=== PATIENT | female | born 1945 | race Caucasian/White ===

== ENCOUNTER 2016-09-25 07:10 | Emergency (ER) | payer MEDICARE, BC ==
[~2016-09-25] VITALS: Ht 154.9 cm; Wt 89.5 kg
[~2016-09-25 07:10] MED LIST: ALEVE 220MG220 MG PO; ANTIVERT 25MG25 MG PO; ASPIRIN 32325 MG/TAB PO; CALCIUM + D 6001 TA1 PO; COLACE 100100 MG/CAP PO; COUMADIN 5MG5 MG/TAB PO; FLOMAX 0.40.4 MG/CAP PO; FLONASE NASAL S16 GM NS; HAIR VITAMINS E1 TAB PO; IRON FERROUS S325 MG PO; LEVAQUIN 750MG750 M1 PO; NORCO 325 MG-51 TAB PO; SYNTHROID0.05 MG/TA PO; TENORMIN 2525 MG/TAB PO; VENTOLIN0.09 MG IH; XARELTO15 MG PO; ZOCOR 20MG20 MG PO; ZOFRAN 4MG T4 MG/TAB PO; ZYRTEC5 MG PO
[2016-09-25 07:15] VITALS: TEMP 98.3
[2016-09-25 08:07] LABS: ADJUSTED CALCIUM 9.9 mg/dL (8.4-10.2); ALBUMIN 4.3 gm/dL (3.5-5.0); BILIRUBIN,TOTAL 0.9 mg/dL (0.0-1.0); C-REACTIVE PROTEIN 0.7 mg/dL (0.0-0.9); CALCIUM 10.1 mg/dL (8.4-10.2); CREATININE, serum 1.01 mg/dL (0.52-1.25); POTASSIUM 3.9 mmol/L (3.4-5.0); TOTAL PROTEIN 7.5 gm/dL (6.4-8.2)
[2016-09-25 08:31] LABS: BASO % 0.5 % (0.0-2.0); EOS % 0.5 % (0-4.0); GRAN # 6.9 (1.4-6.5); GRAN % 80.9 % (42.2-75.2); HEMATOCRIT 43.5 % (37.0-47.0); HEMOGLOBIN 14.8 g/dl (12.5-16.0); LYMPH # 0.9 (1.2-3.4); LYMPH % 10.2 % (20.0-51.0); MEAN CELL VOLUME 91 fl (80.0-100.0); MEAN CORPUSCULAR HEMOGLOBIN 31 pg (27.0-31.0); MEAN CORPUSCULAR HGB CONC 34 g/dl (33.0-37.0); MEAN PLATELET VOLUME 9.6 fl (7.4-10.4); MONO # 0.7 (0.1-0.6); MONO % 7.8 % (1.7-9.3); PLATELET COUNT 237 K/mm3 (130-400); RED BLOOD COUNT 4.79 M/mm3 (4.10-5.30); REDCELL DISTRIBUTION WIDTH-CV 11.6 % (11.5-14.5); WHITE BLOOD COUNT 8.5 K/mm3 (4.8-10.8)
[2016-09-25 09:18] LABS: PH 6 (5-8); SQUAMOUS EPITHELIAL 0-2 /hpf; URINE APPEARANCE Clear; URINE BACTERIA Rare /hpf; URINE BILIRUBIN Negative (NEGATIVE); URINE BLOOD 3+ (NEGATIVE); URINE COLOR Yellow; URINE GLUCOSE Negative (NEGATIVE); URINE KETONE Negative (NEGATIVE); URINE UROBILINOGEN Negative (NEGATIVE)
[2016-09-25] MEDS ORDERED: NORCO 325 MG-51 TAB PO (10:15)
[2016-09-25] MEDS ORDERED: FLOMAX 0.40.4 MG/CAP PO (10:15)
[2016-09-25 10:28] VITALS: BP 127/78; PULSE 72
== END 2016-09-25 10:28 | disposition home or self-care (01) ==
LOC: COL.ER 07:10
PROVIDERS: Emergency Medicine; Nurse Practitioner
DX: N13.2 Hydronephrosis with renal and ureteral calculous obstruction (principal); I10 Essential (primary) hypertension; Z87.442 Personal history of urinary calculi
CPT/HCPCS: J2405; J7030

== ENCOUNTER 2018-01-28 16:43 | Emergency (ER) | payer MEDICARE, BC ==
[~2018-01-28] VITALS: Ht 154.9 cm; Wt 93.1 kg
[2018-01-28 16:48] VITALS: TEMP 98.2
[2018-01-28 17:35] LABS: BASO % 0.5 % (0.0-2.0); EOS % 0.4 % (0-4.0); GRAN # 7.1 (1.4-6.5); GRAN % 84.5 % (42.2-75.2); HEMATOCRIT 41.7 % (37.0-47.0); HEMOGLOBIN 13.7 g/dl (12.5-16.0); LYMPH # 0.8 (1.2-3.4); LYMPH % 9.2 % (20.0-51.0); MEAN CELL VOLUME 92 fl (80.0-100.0); MEAN CORPUSCULAR HEMOGLOBIN 30 pg (27.0-31.0); MEAN CORPUSCULAR HGB CONC 33 g/dl (33.0-37.0); MEAN PLATELET VOLUME 8.9 fl (7.4-10.4); MONO # 0.4 (0.1-0.6); MONO % 4.9 % (1.7-9.3); PLATELET COUNT 245 K/mm3 (130-400); RED BLOOD COUNT 4.53 M/mm3 (4.10-5.30); REDCELL DISTRIBUTION WIDTH-CV 12.7 % (11.5-14.5)
[2018-01-28 17:45] LABS: INR 1.2 (0.8-3.0); PROTHROMBIN TIME 13.3 SECONDS (9.7-12.8)
[2018-01-28 17:49] LABS: ALBUMIN 4.1 gm/dL (3.5-5.0); BILIRUBIN,TOTAL 0.5 mg/dL (0.0-1.0); CALCIUM 9.8 mg/dL (8.4-10.2); CREATININE, serum 0.87 mg/dL (0.52-1.25); POTASSIUM 3.9 mmol/L (3.4-5.0); TOTAL PROTEIN 7.5 gm/dL (6.4-8.2)
[2018-01-28 18:17] VITALS: BP 137/84; PULSE 78
== END 2018-01-28 18:15 | disposition home or self-care (01) ==
LOC: COL.ER 16:43
PROVIDERS: Emergency Medicine
DX: S00.03XA Contusion of scalp, initial encounter (principal); E03.9 Hypothyroidism, unspecified; I10 Essential (primary) hypertension; E78.5 Hyperlipidemia, unspecified; Z79.82 Long term (current) use of aspirin; Z79.01 Long term (current) use of anticoagulants; Z23 Encounter for immunization; W18.39XA Other fall on same level, initial encounter

== ENCOUNTER → 2018-04-10 | Outpatient (CLI) | payer MEDICARE, BC | LOC: MC.RAD 14:40 | DX: Z12.31 Encounter for screening mammogram for malignant neoplasm of breast (principal) ==

== ENCOUNTER 2018-11-25 11:19 | Inpatient (IN) | payer MEDICARE, BC ==
[~2018-11-25] VITALS: Ht 154.9 cm; Wt 93.5 kg
[2018-12-29] VITALS (11 sets, daily range): BP systolic 116–155; BP diastolic 49–93; PULSE 55–74; TEMP 97.4–98.2
[2018-12-29] MEDS ORDERED: PLAVIX 75MG TAB75 MG PO (05:25)
[2018-12-29] MEDS ORDERED: COUMADIN 77.5 MG/TAB PO (07:58)
--- NOTE | 2018-12-29 11:10 | NUR ---
PATIENT BACK IN ROOM 328 POST OP LTH. ORIENTED BUT DROWSY. VSS. DENIES PAIN. PATIENT IS UNABLE TO MOVE BLE. LTH DRESSING IS CD&I WITH FOAM TAPE AND ICE PACK INPLACE. TEDS & SCD'S TO BLE. POSITIVE PEDAL PULSES TO BLE. CALVO TO DEPENDENT DRAINAGE WITH SMALL AMOUNTS OF CLEAR YELLOW URINE NOTED. IV FLUIDS INFUSING VIA PUMP INTO LEFT HAND IV. HEAD TO TOE WNL. NO OTHER NEEDS. LIQUIDS AT BEDSIDE. FAMILY AT BEDSIDE. CALL LIGHT IN REACH.
--- NOTE | 2018-12-29 11:18 | NUR ---
First visit from the real estate site analyst. Sport Psychologist spoke with family and explained services. No needs at this time.
--- NOTE | 2018-12-29 14:20 | NUR ---
PATIENT C/O PAIN IN LEFT HIP RATED AT 6/10. GAVE PRN NORCO, TWO TABS AND PRN ZOFRAN. PATIENT REFUSES TO EAT AND REQUESTED NAUSEA MEDS WITH PAIN PILL. VSS. PATIENT NOW RESTING COMFORTABLY WITH FAMILY AT BEDSIDE. NO OTHER NEEDS.
--- NOTE | 2018-12-29 16:17 | NUR ---
SW met with patient and family about discharge planning. Patient lives at home alone in [place]. Patient's PCP is Dr Trevino and she obtains prescriptions from [facility]. Patient uses a walker for ambulation but no other DME is reported and patient does not have any home health services. Patient does have a DPOA and a copy is on the chart. SW inquired if patient has a plan for PT after discharge. Patient and family do not have a plan but they are interested in options. SW explain outpatient PT vs Home Health vs SNF. Family report that SNF would likely be the best option for patient but would like to see what PT/OT recommend. SW will follow up with patient and family after PT and OT make recommendations.
--- NOTE | 2018-12-29 21:11 | NUR ---
Patient resting well in bed. Alert and oriented. Patient denies any pain, but wants pain medication before going for a walk. PRN medication given. Patient states she does not take Warfarin anymore and takes Plavix now. Warfarin held and will update physician in the morning.
[2018-12-30 00:28] VITALS: BP 99/45; PULSE 62; TEMP 98
[2018-12-30 04:11] VITALS: BP 116/45; PULSE 59; TEMP 98.1
--- NOTE | 2018-12-30 04:52 | NUR ---
Patient has rested well throughout the night. Minimal pain noted and is well controlled. Repositioning completed. Denies any further needs.
[2018-12-30 07:22] LABS: HEMOGLOBIN 11.2 g/dl (12.5-16.0)
[2018-12-30 07:27] LABS: HEMATOCRIT 34.3 % (37.0-47.0)
[2018-12-30 07:29] LABS: INR 1.3 (0.8-3.0); PROTHROMBIN TIME 14.4 SECONDS (9.7-12.8)
--- NOTE | 2018-12-30 07:41 | NUR ---
REPORT FROM INDIANA MARK.
[2018-12-30 07:48] VITALS: BP 114/49; PULSE 62; TEMP 98.6
--- NOTE | 2018-12-30 08:57 | NUR ---
PT SITTING UP IN BED VISITING WITH FAMILY AND FREINDS. DRESSING TO LEFT HIP CDI WITH BULKY DRESSING INPLACE.
--- NOTE | 2018-12-30 09:50 | NUR ---
pt struggled with physical therapy this am.
[2018-12-30 11:53] VITALS: BP 114/50; PULSE 63; TEMP 98.3
--- NOTE | 2018-12-30 13:39 | NUR ---
DRESSING CHANGE COMPLETE, CALVO CATHETER DISCONTINUED TIP INTACT PT TOLERATED WELL. INCISION WELL APPROXIMATED ROBBY INTACT. AQUACEL PLACED OVER INCISION.
--- NOTE | 2018-12-30 14:12 | NUR ---
SW met with patient about discharge plan. It has been recommended for patient to go to a SNF after discharge. SW provided the medicare.gov resource list for nursing facilities near [place]. Patient chose 1. [facility] and 2. [place] and signed choice form. SW faxed referral to both facilities.
[2018-12-30 15:52] VITALS: BP 110/50; PULSE 71; TEMP 98.6
--- NOTE | 2018-12-30 16:00 | NUR ---
Patient was accepted to [facility] for post acute rehab.
--- NOTE | 2018-12-30 18:53 | NUR ---
report to enrique MARK.
[2018-12-30 20:03] VITALS: BP 112/60; PULSE 75; TEMP 99.4
--- NOTE | 2018-12-30 20:21 | NUR ---
Patient resting in bed working on a word search. States pain 4/10 to left hip. Dressing CDI. Pulses present to bilateral lower extremities. No edema noted. Ice to left hip. PRN Pain medication given along with evening medications. SCDs and ALINA hose on. Denies further needs.
[2018-12-31] VITALS (8 sets, daily range): BP systolic 114–146; BP diastolic 42–72; PULSE 51–82; TEMP 98.4–99.7
--- NOTE | 2018-12-31 04:18 | NUR ---
Patient rested well throughout the night. Stated PRN pain medication brought pain to a 0. Wants SCDs off for now. Patient up to the restroom with SBA from staff. Steady gait. Utilizes walker well and reminds herself safety techniques.
[2018-12-31 06:00] LABS: HEMATOCRIT 31.1 % (37.0-47.0)
[2018-12-31 06:08] LABS: INR 1.4 (0.8-3.0); PROTHROMBIN TIME 15.6 SECONDS (9.7-12.8)
--- NOTE | 2018-12-31 07:53 | NUR ---
REPORT FROM JOANN MARK.
--- NOTE | 2018-12-31 10:46 | NUR ---
PT OUT TO [facility] WITH THERAPY THIS AM. PAIN WELL CONTROLLED WITH CURRENT PO MEDS.
--- NOTE | 2018-12-31 16:52 | NUR ---
INDIANA faxed updates to Remy.
--- NOTE | 2018-12-31 18:53 | NUR ---
REPORT TO JOSE MARK.
--- NOTE | 2018-12-31 21:21 | NUR ---
Resting in bed. Previous up ambulating. Assessment complete. Lungs clear. Heart sounds normal. Bowels active x4. Pulses strong throughout. No edema noted. INT to left hand without complications. Left hip dressing CDI. Denies pain. Denies needs at this time. Call light in reach.
--- NOTE | 2018-12-31 22:39 | NUR ---
Rating pain in left hip 03/11. Provided with CHANTEL quintero.
--- NOTE | 2019-01-01 02:20 | NUR ---
Resting in bed asleep. Call light in reach.
--- NOTE | 2019-01-01 03:52 | NUR ---
Resting in bed. Denies needs. Call light in reach.
[2019-01-01 04:23] VITALS: BP 116/42; PULSE 64; TEMP 98.6
--- NOTE | 2019-01-01 06:10 | NUR ---
Patient had uneventful night. Required pain control once throughout night. Ambulated from bed to restroom to sink and to chair. Resting in chair this AM. Provided with 2 cups of hot water as ordered. Denies needs at this time. Call light in reach.
[2019-01-01] MEDS ORDERED: NORCO 325 MG-7.1 TAB PO (06:41)
[2019-01-01] MEDS ORDERED: ROXICODONE 55 MG/TAB PO (06:42)
--- NOTE | 2019-01-01 06:54 | NUR ---
Report given to JAS Lowe
[2019-01-01 07:08] LABS: INR 1.3 (0.8-3.0); PROTHROMBIN TIME 14.4 SECONDS (9.7-12.8)
[2019-01-01 07:46] VITALS: BP 100/47; PULSE 86; TEMP 98.8
--- NOTE | 2019-01-01 09:30 | NUR ---
INDIANA met with patient to discuss disharge. Patient will discharge today to [facility] for custodial, PT and OT. INDIANA presented IM to patient. She signed but did not request a copy. INDIANA faxed discharge orders and arranged transportation for 10:30am.
[2019-01-01 09:32] VITALS: BP 100/47; PULSE 86; TEMP 98.8
[2019-01-01 09:44] VITALS: BP 100/47; PULSE 86; TEMP 98.8
--- NOTE | 2019-01-01 10:40 | NUR ---
PATIENT DISCHARGING VIA WHEELCHAIR WITH [facility]. GAVE INFO PACKET TO CARAMEL CUTTER HELPER. DC'D IV, COVERED SITE WITH CRISTINA & RG. SENT PERSONAL BELONGINGS. ATTEMPTED TO CALL REPORT X2. LEFT PHONE NUMBERN FOR NURSE TO CALL BACK.
== END 2019-01-01 10:40 | DRG 470 ==
LOC: JCC 12-29 05:02
PROVIDERS: ADMIT Orthopaedic Surgery
PROC: 0SRB0JA Replacement of Left Hip Joint with Synthetic Substitute, Uncemented, Open Approach (ICD-10-PCS; principal; 2018-12-29 07:30)
DX: M16.12 Unilateral primary osteoarthritis, left hip (principal); G11.9 Hereditary ataxia, unspecified; I10 Essential (primary) hypertension; E78.5 Hyperlipidemia, unspecified; Z79.01 Long term (current) use of anticoagulants; Z86.711 Personal history of pulmonary embolism; G60.9 Hereditary and idiopathic neuropathy, unspecified
CPT/HCPCS: A4314; A9284; C1713; C1776; J0360; J0690; J2250; J2274; J2405; J2704; J3010; J7042; J7120

== ENCOUNTER → 2018-12-24 | Outpatient (CLI) | payer MEDICARE, BC | LOC: COL.LAB 10:40 | DX: Z01.812 Encounter for preprocedural laboratory examination (principal) ==

== ENCOUNTER 2018-12-25 13:45 | Outpatient (RCR) | payer MEDICARE, BC | END 2018-12-26 11:59 | disposition home or self-care (01) | LOC: WSPT 13:45 | DX: G60.9 Hereditary and idiopathic neuropathy, unspecified (principal); G25.81 Restless legs syndrome | CPT/HCPCS: G8978-GP; G8979-GP ==

== ENCOUNTER → 2020-04-08 | Outpatient (CLI) | payer MEDICARE, BC ==
[~2020-04-08] MED LIST changes: +COUMADIN 77.5 MG/TAB PO; +NORCO 325 MG-7.1 TAB PO; +PLAVIX 75MG TAB75 MG PO; +ROXICODONE 55 MG/TAB PO
[2020-04-08 08:54] LABS: ALANINE AMINOTRANSFERASE 17 U/L (4-34); ALKALINE PHOSPHATASE 116 U/L (50-136); ANION GAP 5 mmol/L (7-16); AST,SGOT 29 U/L (15-37); BILIRUBIN,TOTAL 0.4 mg/dL (0.0-1.0); BLOOD UREA NITROGEN 16 mg/dL (7-17); CALCIUM 9.5 mg/dL (8.4-10.2); CARBON DIOXIDE 29 mmol/L (22-30); CHLORIDE 106 mmol/L (98-107); GLUCOSE 98 mg/dL (74-106); HEMATOCRIT 40.9 % (37.0-47.0); HEMOGLOBIN 13.1 g/dl (12.5-16.0); MEAN CELL VOLUME 92 fl (80.0-100.0); MEAN CORPUSCULAR HEMOGLOBIN 29 pg (27.0-31.0); MEAN CORPUSCULAR HGB CONC 32 g/dl (33.0-37.0); MEAN PLATELET VOLUME 9.5 fl (7.4-10.4); PLATELET COUNT 239 K/mm3 (130-400); RED BLOOD COUNT 4.47 M/mm3 (4.10-5.30); REDCELL DISTRIBUTION WIDTH-CV 12.9 % (11.5-14.5); SODIUM 140 mmol/L (137-145); TOTAL PROTEIN 7.1 gm/dL (6.4-8.2)
[2020-04-08 09:08] LABS: C-REACTIVE PROTEIN < 0.5 mg/dL (0.0-0.9)
[2020-04-08 09:28] LABS: ERYTHROCYTE SEDIMENTATION RATE 18 mm/hr (0-30)
[2020-04-08 19:23] LABS: FOLATE (FOLIC ACID) 11.4 ng/mL (7.0-31.4)
[2020-04-09 11:40] LABS: ANA SCREEN with REFLEX Negative (Negative)
[2020-04-12 12:54] LABS: VITAMIN B1 169 nmol/L (70-180)
== END ==
LOC: COL.RAD 06:59 → COL.LAB 06:59 → COL.RAD 08:15
PROVIDERS: Ophthalmology
DX: Z11.3 Encounter for screening for infections with a predominantly sexual mode of transmission (principal); I67.89 Other cerebrovascular disease; H53.2 Diplopia; H55.00 Unspecified nystagmus
CPT/HCPCS: A9585

== ENCOUNTER → 2020-09-05 | Outpatient (RCR) | payer MEDICARE, BC | END | disposition home or self-care (01) | LOC: WSPT | DX: R26.81 Unsteadiness on feet (principal) ==

== ENCOUNTER → 2020-12-12 | Outpatient (CLI) | payer MEDICARE, BC ==
[~2020-12-12] MED LIST changes: -CALCIUM + D 6001 TA1 PO; +CALCIUM 600MG+D1 TAB PO; +FLEXERIL 1010 MG/TAB PO; +LIPITOR 40MG TA40 MG PO; +OCEAN NASAL SPR45 ML NS; +OMNICEF 300MG300 MG PO; +TUMS500 MG; +TYLENOL 500MG500 MG PO; +VITAMIN D31000 I1 PO; +ZYRTEC 10MG10 MG PO
== END ==
LOC: COL.LAB 08:00
DX: Z20.822 Contact with and (suspected) exposure to COVID-19 (principal)

== ENCOUNTER 2021-01-12 08:13 | Outpatient (RCR) | payer MEDICARE, BC ==
[~2021-01-12 08:13] MED LIST changes: -FLEXERIL 1010 MG/TAB PO; -LIPITOR 40MG TA40 MG PO; -OCEAN NASAL SPR45 ML NS; -OMNICEF 300MG300 MG PO; -TUMS500 MG; -TYLENOL 500MG500 MG PO; -VITAMIN D31000 I1 PO; -ZYRTEC 10MG10 MG PO
[2021-07-04] MEDS ORDERED: LIPITOR 40MG TA40 MG PO (17:47)
[2021-07-04] MEDS ORDERED: VITAMIN D31000 I1 PO (17:49)
[2021-07-04] MEDS ORDERED: ZYRTEC 10MG10 MG PO (17:51)
[2021-07-04] MEDS ORDERED: OCEAN NASAL SPR45 ML NS (17:52)
[2021-07-04] MEDS ORDERED: TYLENOL 500MG500 MG PO (17:53)
[2021-07-04] MEDS ORDERED: TUMS500 MG (17:54)
[2021-07-06] MEDS ORDERED: OMNICEF 300MG300 MG PO (14:28)
== END 2021-01-13 09:47 | disposition home or self-care (01) ==
LOC: WSPT 08:13
DX: R26.81 Unsteadiness on feet (principal)

== ENCOUNTER → 2021-04-06 | Outpatient (CLI) | payer MEDICARE, BC ==
--- NOTE | 2020-12-15 08:22 | NUR ---
0655 PATIENT REPORTS HAVING FORMED STOOL EVEN AFTER GETTING AN ENEMA THIS AM. DR. HERNANDEZ NOTIFIED. PATIENT WILL BE RE-SCHEDULED PER [facility] PER DR. HERNANDEZ.
[~2021-04-06] MED LIST changes: +FLEXERIL 1010 MG/TAB PO; +LIPITOR 40MG TA40 MG PO; +OCEAN NASAL SPR45 ML NS; +OMNICEF 300MG300 MG PO; +TUMS500 MG; +TYLENOL 500MG500 MG PO; +VITAMIN D31000 I1 PO; +ZYRTEC 10MG10 MG PO
== END ==
LOC: SDCO 12-15 06:11 → EDSTATUS 07:30 → SDCO 07:30 → ZCOL.LAB 12:00
DX: Z12.11 Encounter for screening for malignant neoplasm of colon (principal); Z20.822 Contact with and (suspected) exposure to COVID-19

== ENCOUNTER 2021-06-04 19:04 | Emergency (ER) | payer MEDICARE, BC ==
[~2021-06-04] VITALS: Ht 149.9 cm; Wt 93.2 kg
[~2021-06-04 19:04] MED LIST changes: -FLEXERIL 1010 MG/TAB PO; -LIPITOR 40MG TA40 MG PO; -OCEAN NASAL SPR45 ML NS; -OMNICEF 300MG300 MG PO; -TUMS500 MG; -TYLENOL 500MG500 MG PO; -VITAMIN D31000 I1 PO; -ZYRTEC 10MG10 MG PO
[2021-06-04 19:10] VITALS: TEMP 97.2
[2021-06-04] MEDS ORDERED: NORCO 325 MG-51 TAB PO (20:13)
[2021-06-04 21:00] VITALS: BP 144/70; PULSE 62
[2021-07-04] MEDS ORDERED: LIPITOR 40MG TA40 MG PO (17:47)
[2021-07-04] MEDS ORDERED: VITAMIN D31000 I1 PO (17:49)
[2021-07-04] MEDS ORDERED: ZYRTEC 10MG10 MG PO (17:51)
[2021-07-04] MEDS ORDERED: OCEAN NASAL SPR45 ML NS (17:52)
[2021-07-04] MEDS ORDERED: TYLENOL 500MG500 MG PO (17:53)
[2021-07-04] MEDS ORDERED: TUMS500 MG (17:54)
[2021-07-06] MEDS ORDERED: OMNICEF 300MG300 MG PO (14:28)
== END 2021-06-04 21:00 | disposition home or self-care (01) ==
LOC: COL.ER 19:04
DX: S82.845A Nondisplaced bimalleolar fracture of left lower leg, initial encounter for closed fracture (principal); S82.55XA Nondisplaced fracture of medial malleolus of left tibia, initial encounter for closed fracture; S82.65XA Nondisplaced fracture of lateral malleolus of left fibula, initial encounter for closed fracture; X50.1XXA Overexertion from prolonged static or awkward postures, initial encounter
CPT/HCPCS: L4386

== ENCOUNTER 2021-07-18 22:57 | Emergency (ER) | payer MEDICARE, BC ==
[~2021-07-18] VITALS: Ht 152.4 cm; Wt 93.2 kg
[2021-07-18 22:57] VITALS: TEMP 98.6
[~2021-07-18 22:57] MED LIST changes: +LIPITOR 40MG TA40 MG PO; +OCEAN NASAL SPR45 ML NS; +OMNICEF 300MG300 MG PO; +TUMS500 MG; +TYLENOL 500MG500 MG PO; +VITAMIN D31000 I1 PO; +ZYRTEC 10MG10 MG PO
[2021-07-18] MEDS ORDERED: FLEXERIL 1010 MG/TAB PO (23:56)
[2021-07-19 00:20] VITALS: BP 138/61; PULSE 80
== END 2021-07-19 00:22 | disposition home or self-care (01) ==
LOC: COL.ER 22:57
DX: M62.838 Other muscle spasm (principal); J18.9 Pneumonia, unspecified organism; J96.90 Respiratory failure, unspecified, unspecified whether with hypoxia or hypercapnia

== ENCOUNTER → 2021-09-13 | Outpatient (CLI) | payer MEDICARE, BC ==
[~2021-09-13] MED LIST changes: +CALCIUM 600600 MG PO; +FLEXERIL 1010 MG/TAB PO; +RESTASIS MULTI5.5 ML OP; +SENNA-S 50 MG-81 TAB PO
== END ==
LOC: COL.RAD 10:56
DX: E04.1 Nontoxic single thyroid nodule (principal)

== ENCOUNTER 2022-04-23 14:32 | Emergency (ER) | payer MEDICARE, BC ==
[~2022-04-23] VITALS: Ht 152.4 cm; Wt 96.4 kg
[2022-04-23 14:33] VITALS: TEMP 97.8
[2022-04-23] MEDS ORDERED: CEPHALEXIN500 M1 PO ×2 (16:31→16:32)
[2022-04-23 17:26] VITALS: BP 135/75; PULSE 78
== END 2022-04-23 17:30 | disposition home or self-care (01) ==
LOC: COL.ER 14:32
DX: S62.632A Displaced fracture of distal phalanx of right middle finger, initial encounter for closed fracture (principal); S61.312A Laceration without foreign body of right middle finger with damage to nail, initial encounter; S60.021A Contusion of right index finger without damage to nail, initial encounter; W01.0XXA Fall on same level from slipping, tripping and stumbling without subsequent striking against object, initial encounter; W23.1XXA Caught, crushed, jammed, or pinched between stationary objects, initial encounter